=== PATIENT | male | born 1975 | race African-American/Black ===

== ENCOUNTER 2017-05-04 09:40 | Inpatient (IN) ==
[2017-05-04] MEDS ORDERED: SODIUM CHLORIDE 0.9% 500 ML IV STA (10:01)
[2017-05-04 10:18] LABS: Basophils % 0.2 % (0.0-0.8); Eosinophils # 0.1 10*3/uL (0.0-0.87); Hemoglobin 16.4 GM/DL (14.0-18.0); Immature Granulocytes % 0.3 %; Immature Granulocytes Absolute 0.03 #; Lymphocytes # 2.2 10*3/uL (1.4-4.0); Lymphocytes % 23.5 % (21.2-54.2); Mean Corpuscular HGB Conc 33.5 GM/DL (32-36); Mean Corpuscular Hemoglobin 28 PG (27-34); Mean Corpuscular Volume 84.2 FL (87-102); Mean Platelet Volume 8.7 FL (9.6-12.0); Monocytes # 0.7 10*3/uL (0.11-0.8); Monocytes % 7.6 % (1.7-12.7); Neutrophils # 6.2 10*3/uL (1.4-7.4); Neutrophils % 67.4 % (38.7-73.9); Platelet Count 318 T/CUMM (130-400); Red Blood Count 5.82 MC/CUMM (3.8-5.5); Red Cell Distribution Width 13.2 % (9.3-17.3); White Blood Count 9.2 T/CUMM (4-12)
[2017-05-04 10:28] LABS: PT Patient Result 10.7 SECS; Partial Thromboplastin Time 27.1 SECS (0-40)
--- NOTE | 2017-05-04 10:31 | XRay Report ---
XR chest 1V portable Indication: Generalized abdominal pain Comparison: None Technique: Single frontal view of the chest. Findings: Heart size within normal limits. No focal consolidation, pleural effusion, or pneumothorax. Mild elevation of the right hemidiaphragm. Visualized osseous and surrounding soft tissue structures demonstrate no acute abnormality. IMPRESSION: No acute cardiopulmonary process demonstrated. Mild elevation of the right hemidiaphragm. PROCEDURE INTERPRETED AT [facility] DEPARTMENT OF RADIOLOGY Final Report Signed by: Dr Evan Mckee
[2017-05-04 10:45] LABS: Albumin 4.1 G/DL (3.4-5.0); Bilirubin,Total 1.5 MG/DL (0.2-1.0); Calcium 9.7 MG/DL (8.5-10.1); Osmolality,Calculated 285.4 MOS/KG (273-304); Potassium 3.9 MMOL/L (3.5-5.1); Total Protein 7.5 G/DL (6.4-8.3)
[2017-05-04] MEDS ORDERED: ONDANSETRON 4 MG/2 ML VIAL ONE (10:45)
[2017-05-04] MEDS ORDERED: HYDROmorphone 2 MG/1 ML VIAL ONE ×2 (10:45→14:47)
[2017-05-04] MEDS ORDERED: ONDANSETRON 4 MG/2 ML VIAL IV STA (11:36)
[2017-05-04] MEDS ORDERED: HYDROmorphone 2 MG/1 ML VIAL IV STA ×2 (11:36→15:00)
--- NOTE | 2017-05-04 12:33 | CT Report ---
Exam: CT abdomen pelvis w con Date: 05/04/2017 9:56 AM Comparison: None Indication: Right lower quadrant abdominal pain Total DLP: 2224 mGy*cm Technical: Oral contrast was administered. Images were obtained from the lung bases to the iliac crest continuation through the pelvis with 100 cc of Omnipaque 350 with axial sagittal coronal imaging available for review. Dose reduction was performed with decreasing kv and mA and automated exposure Findings: Lung bases: No obvious infiltrates or effusions. The heart is normal in size. Liver and Spleen: Mild fatty infiltration of the liver is present. The hepatic and portal veins are unremarkable. Spleen is intact. Gallbladder and Pancreas: Unremarkable Adrenals: Slight fullness of the adrenal glands bilaterally. Kidneys: Small area cortical irregularity along the superior posterior margin the right kidney that suggests a component of scarring small interpolar stone present on the right on image slice 71 measuring approximately 2 mm. No obstructive uropathy present bilaterally. Simple cyst of the right kidney also present measuring approximately 5 mm with a small cyst on the left kidney also present. Stomach: Incomplete distended with contrast air-fluid and debris Retroperitoneum: No enlarged lymph nodes. Aorta and IVC: No obvious aneurysm aorta iliac vessels and IVC are unremarkable. Bowel and Mesentery: The appendix is demonstrated without the dilatation with air and mucus present in the appendix. The terminal ileum is demonstrated with mild wall thickening. There is trace of free fluid in the right lower quadrant no obvious pneumoperitoneum otherwise noted.. The rectosigmoid colon is unremarkable. Some slightly dilated loops of small bowel are present . Partial bowel obstruction is not excluded the exam reveals transition in the mid abdomen with very little contrast distal to this area within the ileum. A few prediverticular changes in the rectosigmoid colon. Pelvis: Bladder: Partially distended with contrast on delayed images. Fluid: No free fluid identified. Lymph nodes: No enlarged lymph nodes. Pelvic organs: Prostate gland is demonstrated with mild prostate calcifications. Osseous structures: No suspicious appearing osseous abnormalities noted. Impression: 1. Small amount of free fluid in the right abdomen in the right paracolic gutter 2. Partial small bowel obstruction with transition in the mid lower abdomen and ileal region with little to no contrast distal to this area however the exam reveals some fluid-filled loops of bowel and bowel wall thickening within the distal terminal ileum a component of terminal ileitis regional ileitis Crohn's disease is considered for this patient.. Considerable bowel wall thickening on around image slice #[id number] in the ileum with transition at this level. Critical test Findings discussed with Dr. Son Olmstead in the emergency room. PROCEDURE INTERPRETED AT [facility] DEPARTMENT OF RADIOLOGY Final Report Signed by: Dr. Thanh Botello
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
[2017-05-04 13:08] LABS: Apearance,Urine CLEAR (Clear); Bilirubin,Urine Negative (Negative); Blood, Urine Negative (Negative); Glucose,Urine (UA) 50 mg/dL (Negative); Hyaline Casts,Urine 1 /LPF (0-3); Ketones,Urine 20 mg/dL (Negative); Mucus,Urine Few /LPF (Occasional); Nitrite,Urine Negative (Negative); Protein,Urine 30 MG/DL; Squamous Epithelial Cell,Urine Occasional /HPF (0-10); Urine Color Yellow (Yellow); Urine Specific Gravity 1.051 (1.001-1.035); Urine Urobilinogen < 2.0 EU/DL (0.2-1.0); WBC,Urine 1 /HPF (0-6)
[2017-05-04] MEDS ORDERED: ACETAMINOPHEN 325 MG TABLET PO PRN (13:11)
[2017-05-04] MEDS ORDERED: ONDANSETRON 4 MG/2 ML VIAL IV PRN (13:11)
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
--- NOTE | 2017-05-04 15:19 | XRay Report ---
XR chest 1V portable Indication: NG tube placement. Chest one view: Compromise view the chest and abdomen shows an NG tube extending into the stomach, coiled slightly in the antrum. Sideholes well beyond the GE junction. Impression: NG tube position as described. PROCEDURE INTERPRETED AT [facility] DEPARTMENT OF RADIOLOGY Final Report Signed by: Thomas Jose M.D.
[2017-05-04] MEDS: DEXTROSE 5% NACL 0.45% 1,000 ML IV SCH (16:25)
[2017-05-04] MEDS ORDERED: GLUCAGON 1 MG VIAL IM PRN (17:02)
[2017-05-04] MEDS ORDERED: DEXTROSE 50% 25 GM/50 ML VIAL IV PRN (17:02)
[2017-05-04] MEDS: HYDROmorphone 2 MG/1 ML VIAL IV PRN ×3 (17:16→23:38)
[2017-05-04] MEDS: INSULIN LISPRO 100 UNIT/ML SUBCUT SCH (22:59)
[2017-05-05] MEDS: DEXTROSE 5% NACL 0.45% 1,000 ML IV SCH ×4 (01:10→16:43)
[2017-05-05] MEDS: HYDROmorphone 2 MG/1 ML VIAL IV PRN ×7 (02:54→21:16)
[2017-05-05] MEDS: PANTOPRAZOLE 40 MG TABLET PO SCH (09:14)
[2017-05-05] MEDS: INSULIN LISPRO 100 UNIT/ML SUBCUT SCH ×4 (09:15→21:16)
--- NOTE | 2017-05-05 13:47 | General Surgery Progress Note ---
Assessment and Plan (1) Partial small bowel obstruction Status: Acute Assessment and plan: The patient appears to have partial small bowel obstruction without any evidence of bowel compromise or tenderness. We will treat him with conservative treatment first. We may place a nasogastric tube. This was discussed with the patient. He would like to avoid surgery if possible. He understands of conservative treatment is not successful then he may require laparotomy. We will give him IV fluids. 05/05: He continues to have intermittent crampy abdominal pain but this is lefts than before. He is not passing flatus or bowel movement. He still has significant nasogastric output. It appears that he is still obstructed. We will continue with conservative treatment with IV fluids and nasogastric suction for now. He understands that if this is not successful we may need to look at laparotomy. I would like to try try to avoid a laparotomy if possible because this would be a morbid procedure with what I expect his extensive abdominal adhesions and a large wide complex midline abdominal scar. Current Visit: Yes Subjective Patient reports: Present: feels better, still having pain. Absent: no flatus, no bowel movement, nausea, vomiting, fever Exam - Constitutional Vitals: Period Temp Pulse Resp BP Sys/Srivastava Pulse Ox Last 24 Hr 97.3 F-97.9 F 103-104 18-20 121-181/48-92 General appearance: no acute distress - Head Head exam: Present: normocephalic - Eye Eye exam: Absent: scleral icterus - Respiratory Respiratory exam: Absent: accessory muscle use - GI/Abdominal GI/Abdominal exam: Present: soft. Absent: distended, tenderness, rebound Results - Labs CBC & BMP: 05/04/17 10:01 05/04/17 10:01 Lab Results: I have reviewed the past 24 hour labs
[2017-05-06] MEDS: HYDROmorphone 2 MG/1 ML VIAL IV PRN ×4 (00:26→21:45)
[2017-05-06] MEDS: DEXTROSE 5% NACL 0.45% 1,000 ML IV SCH ×3 (00:27→18:32)
[2017-05-06] MEDS: INSULIN LISPRO 100 UNIT/ML SUBCUT SCH ×4 (08:51→22:11)
[2017-05-06] MEDS: PANTOPRAZOLE 40 MG TABLET PO SCH (08:52)
--- NOTE | 2017-05-06 13:21 | General Surgery Progress Note ---
Assessment and Plan (1) Partial small bowel obstruction Status: Acute Assessment and plan: The patient appears to have partial small bowel obstruction without any evidence of bowel compromise or tenderness. We will treat him with conservative treatment first. We may place a nasogastric tube. This was discussed with the patient. He would like to avoid surgery if possible. He understands of conservative treatment is not successful then he may require laparotomy. We will give him IV fluids. 05/05: He continues to have intermittent crampy abdominal pain but this is lefts than before. He is not passing flatus or bowel movement. He still has significant nasogastric output. It appears that he is still obstructed. We will continue with conservative treatment with IV fluids and nasogastric suction for now. He understands that if this is not successful we may need to look at laparotomy. I would like to try try to avoid a laparotomy if possible because this would be a morbid procedure with what I expect his extensive abdominal adhesions and a large wide complex midline abdominal scar. 05/06: He continues to have some abdominal cramping and is not having bowel movements. He has had a good deal out of his nasogastric tube. He does not want surgery at this point which is understandable. We will give him another day but if he is not cleared up by tomorrow we may need to look at laparotomy. Current Visit: Yes Subjective Patient reports: Present: feels better, pain is less. Absent: nausea, vomiting Exam - Constitutional Vitals: Period Temp Pulse Resp BP Sys/Srivastava Pulse Ox Last 24 Hr 97.2 F-98.9 F 77-105 18-22 123-144/72-89 91-100 General appearance: no acute distress - Respiratory Respiratory exam: Absent: accessory muscle use - GI/Abdominal GI/Abdominal exam: Present: soft. Absent: distended, tenderness, rebound Results - Labs CBC & BMP: 05/04/17 10:01 05/04/17 10:01
[2017-05-07] MEDS: HYDROmorphone 2 MG/1 ML VIAL IV PRN ×3 (00:30→21:53)
[2017-05-07] MEDS: DEXTROSE 5% NACL 0.45% 1,000 ML IV SCH ×4 (05:40→21:52)
--- NOTE | 2017-05-07 08:16 | General Surgery Progress Note ---
Assessment and Plan (1) Partial small bowel obstruction Status: Acute Assessment and plan: The patient appears to have partial small bowel obstruction without any evidence of bowel compromise or tenderness. We will treat him with conservative treatment first. We may place a nasogastric tube. This was discussed with the patient. He would like to avoid surgery if possible. He understands of conservative treatment is not successful then he may require laparotomy. We will give him IV fluids. 05/05: He continues to have intermittent crampy abdominal pain but this is lefts than before. He is not passing flatus or bowel movement. He still has significant nasogastric output. It appears that he is still obstructed. We will continue with conservative treatment with IV fluids and nasogastric suction for now. He understands that if this is not successful we may need to look at laparotomy. I would like to try try to avoid a laparotomy if possible because this would be a morbid procedure with what I expect his extensive abdominal adhesions and a large wide complex midline abdominal scar. 05/06: He continues to have some abdominal cramping and is not having bowel movements. He has had a good deal out of his nasogastric tube. He does not want surgery at this point which is understandable. We will give him another day but if he is not cleared up by tomorrow we may need to look at laparotomy. 05/07: Yesterday after I saw him in the morning he began having bowel movements and flatus. This is continued since that time and he feels well. I saw him yesterday afternoon and he had no pain. He is continued to have no abdominal pain and feels that his abdomen is returned to normal. We will discontinue his nasogastric tube and start him on a diet. It appears that his obstruction has resolved with conservative treatment. Current Visit: Yes Subjective Patient reports: Present: feels better, flatus, bowel movement. Absent: still having pain, nausea, vomiting, fever Exam - Constitutional Vitals: Period Temp Pulse Resp BP Sys/Srivastava Pulse Ox Last 24 Hr 97.2 F-98.9 F 64-105 15-22 101-162/59-89 92-100 General appearance: no acute distress - Respiratory Respiratory exam: Absent: accessory muscle use - GI/Abdominal GI/Abdominal exam: Present: soft. Absent: distended, tenderness, rebound Results - Labs CBC & BMP: 05/04/17 10:01 05/04/17 10:01
[2017-05-07] MEDS: PANTOPRAZOLE 40 MG TABLET PO SCH (08:27)
[2017-05-07] MEDS: INSULIN LISPRO 100 UNIT/ML SUBCUT SCH ×3 (08:28→17:06)
[2017-05-08] MEDS: INSULIN LISPRO 100 UNIT/ML SUBCUT SCH ×5 (00:10→21:40)
[2017-05-08] MEDS: HYDROmorphone 2 MG/1 ML VIAL IV PRN ×2 (00:11→21:27)
[2017-05-08] MEDS: DEXTROSE 5% NACL 0.45% 1,000 ML IV SCH ×6 (00:12→21:00)
[2017-05-08] MEDS: PANTOPRAZOLE 40 MG TABLET PO SCH (09:51)
--- NOTE | 2017-05-08 10:48 | Event Note ---
05/08/2017 Patient is in with a partial small bowel obstruction now having bowel movements and hungry but tolerating his full liquids without problems. His abdomen is large rotund but soft with bowel sounds present at this time. No evidence of any hernias in the old incision. At this point I will try to advance him to some solid food and have him walk a little more and if he does well including sending him home tomorrow.
[2017-05-09 04:30] LABS: Basophils % 0.2 % (0.0-0.8); Eosinophils # 0.3 10*3/uL (0.0-0.87); Eosinophils % 4.4 % (0.00-10.9); Hematocrit 38.6 VOL% (42.0-52.0); Immature Granulocytes % 0.4 %; Immature Granulocytes Absolute 0.02 #; Lymphocytes % 35.9 % (21.2-54.2); Mean Corpuscular HGB Conc 33.7 GM/DL (32-36); Mean Corpuscular Hemoglobin 28 PG (27-34); Mean Corpuscular Volume 83.7 FL (87-102); Mean Platelet Volume 8.8 FL (9.6-12.0); Monocytes # 0.5 10*3/uL (0.11-0.8); Monocytes % 8.2 % (1.7-12.7); Neutrophils # 2.9 10*3/uL (1.4-7.4); Neutrophils % 50.9 % (38.7-73.9); Platelet Count 277 T/CUMM (130-400); Red Blood Count 4.61 MC/CUMM (3.8-5.5); Red Cell Distribution Width 12.5 % (9.3-17.3); White Blood Count 5.6 T/CUMM (4-12)
[2017-05-09] MEDS: DEXTROSE 5% NACL 0.45% 1,000 ML IV SCH (05:00)
[2017-05-09 05:04] LABS: Calcium 8.5 MG/DL (8.5-10.1); Magnesium 2.3 MG/DL (1.8-2.4); Osmolality,Calculated 279.4 MOS/KG (273-304); Potassium 3.4 MMOL/L (3.5-5.1)
[2017-05-09] MEDS: PANTOPRAZOLE 40 MG TABLET PO SCH (08:27)
[2017-05-09] MEDS: INSULIN LISPRO 100 UNIT/ML SUBCUT SCH ×4 (08:27→21:31)
[2017-05-09] MEDS ORDERED: POTASSIUM CHLORIDE INJ 40 MEQ in DEXTROSE 5% NACL 0.45% 1,000 ML IV SCH (08:54)
--- NOTE | 2017-05-09 08:56 | Event Note ---
05/09/2017 Patient is stable at this time he has been tolerating the soft diet fairly well. He did describe a little crampy pain yesterday and he said his bowel movements are still watery at this time. Labs look good with his WBC being only 5000 but his potassium is 3.4. We will correct these little bit just to watch him and get the potassium up. We will continue his IV fluids and just observation at this time to see what is going to do. The fact he complained of the pain in the little watery diarrhea may mean that he is not ready to be completely open so we may need to see what is going to happen. Certainly if he does well through the day with Parkinson him home tomorrow.
[2017-05-10 08:08] VITALS: BP 150/90
--- NOTE | 2017-05-10 08:23 | Discharge Summary ---
Hospital Course - Hospital Course Hospital Course: Mr. Colunga is a 41-year-old -[place] male with history of diabetes admitted by Dr. Juventino HALL on 05/04/2017 with a 3 day history of abdominal distention and cramping. CT scan suggested a partial small bowel obstruction and thickening of his ileum. He was admitted for IV fluids and NG tube was placed. Patient did respond to conservative measures. He is having bowel movements and tolerating a regular diet. He has no complaints of abdominal pain or cramping. He will be discharged home with a 2 week follow-up with Dr. Juventino HALL. Patient understands if he has abdominal pain or cramping or starts to vomit bile again he is to return to the emergency room. Care coordination, chart review, and completed discharge paperwork took approximately 31 minutes. - Time spent with patient Time with patient DS: Greater than 30 minutes Diagnosis - Discharge Diagnosis (1) Diabetes Status: Chronic (2) Partial small bowel obstruction Status: Resolved Discharge Plan - Discharge Data Disposition: Disch To Home/Self Care Condition at Discharge: Stable Discharge Diet: diabetic diet Activity: resume usual activities as tolerated Driving: no restrictions Contact your physician if you experience:: Nausea/Vomiting - Discharge Medications Continue Metformin HCl 1,000 mg PO BID - Follow Up or Referral Follow Up: Yony Jauregui III., MD [Physician] - 2 Weeks - Forms/Instructions Exam - Constitutional Vitals: Period Temp Pulse Resp BP Sys/Srivastava Pulse Ox Last 24 Hr 97.5 F-98.6 F 83-94 16-22 119-150/64-90 95-100 Exam: 41-year-old -[place] male, no acute distress, alert and oriented Chest clear CV regular rate and rhythm Abdomen obese, nontender Extremities no edema Discharge Results Labs on day of discharge: Labs from last 24 hours 05/10/17 05/09/17 05/09/17 07:29 21:10 15:38 POC Glucose 179 H 233 H 144 H 05/09/17 12:11 POC Glucose 212 H DS: Provider Date of admission: 05/05/17 10:28 Primary care physician: . No PCP Attending physician on admission: Yony Jauregui III., Discharging clinician: LIGIA Whalen Expected date of discharge: 05/10/17
[2017-05-10] MEDS: INSULIN LISPRO 100 UNIT/ML SUBCUT SCH (09:26)
[2017-05-10] MEDS: PANTOPRAZOLE 40 MG TABLET PO SCH (09:26)
[2017-05-10] MEDS ORDERED: DEXT 5% NACL 0.45% KCL 40 MEQ 40 MEQ/1,000 ML BAG IV SCH (10:24)
== END 2017-05-10 10:30 | disposition home or self-care (01) | DRG 390 ==
LOC: N.EDINP 09:40 → N.ED 09:40 → N.EDINP 15:10 → N.2E 15:27
PROVIDERS: ADMIT Surgery; ATTEND Surgery